=== PATIENT | female | born 2000 | race Caucasian/White ===

== ENCOUNTER 2021-10-25 02:59 | Emergency (ER) | payer BC ==
[~2021-10-25] VITALS: Ht 162.6 cm; Wt 68.2 kg
[2021-10-25 03:03] VITALS: TEMP 98.3
[2021-10-25] MEDS ORDERED: SIMPESSE 0.15-1 EACH PO (03:07)
[2021-10-25 03:36] LABS: BASO # 0.1 K/mm3 (0.0-0.2); BASO % 0.5 % (0.0-2.0); GRAN # 7.2 K/mm3 (1.4-6.5); GRAN % 79.3 % (42.2-75.2); HEMATOCRIT 40.9 % (35.0-45.0); HEMOGLOBIN 14.6 g/dl (12.0-15.0); LYMPH # 1.5 K/mm3 (1.2-3.4); LYMPH % 16.8 % (20.0-51.0); MEAN CELL VOLUME 85 fl (80.0-95.0); MEAN CORPUSCULAR HEMOGLOBIN 30 pg (26-32); MEAN CORPUSCULAR HGB CONC 36 g/dl (33.0-37.0); MEAN PLATELET VOLUME 9.8 fl (7.4-10.4); MONO # 0.3 K/mm3 (0.1-0.6); MONO % 3.2 % (1.7-9.3); PLATELET COUNT 287 K/mm3 (130-400); RED BLOOD COUNT 4.81 M/mm3 (4.10-5.30); REDCELL DISTRIBUTION WIDTH-CV 12.6 % (11.5-14.5)
[2021-10-25 03:51] LABS: ALBUMIN 4.8 gm/dL (3.5-5.0); BILIRUBIN,TOTAL 0.4 mg/dL (0.2-1.2); CALCIUM 9.3 mg/dL (8.4-10.2); CREATININE, serum 0.77 mg/dL (0.57-1.11); POTASSIUM 3.8 mmol/L (3.5-4.5); TOTAL PROTEIN 8.1 gm/dL (6.2-8.1)
[2021-10-25] MEDS ORDERED: ZOFRAN ODT4 MG PO (03:54)
[2021-10-25 04:32] VITALS: BP 112/68; PULSE 89
== END 2021-10-25 05:02 | disposition home or self-care (01) ==
LOC: EDBD 02:59 → COL.ER 02:59
PROVIDERS: Personal Emergency Response Attendant
DX: R11.10 Vomiting, unspecified (principal)
CPT/HCPCS: J2405; J7030